=== PATIENT | female | born 1965 | race Caucasian/White ===

== ENCOUNTER 2022-06-06 08:56 | Emergency (ER) | payer BC, SELFPAY ==
[2022-06-06 08:57] VITALS: BP 134/82; PULSE 97; RESP 16; TEMP 36.2; O2SAT 100; BMI 24.3
--- NOTE | 2022-06-06 09:06 | RAD_ITS ---
INDICATION: fall EXAMINATION/TECHNIQUE: X-RAY - XR Ribs Unilateral W/ PA Chest Min 3 Views COMPARISON: January 31, 2014 FINDINGS: SOFT TISSUES: No soft tissue swelling or gas. BONES: There is a left sixth rib fracture. No sclerotic or destructive changes observed. VISUALIZED LUNGS: Clear. No pneumothorax. RAD/Ribs Uni Min 3V w/PA Chest IMPRESSION: Left sixth rib fracture. Electronically Signed: Ema Toscano MD at 10:00 EST ,
--- NOTE | 2022-06-06 09:06 | EX.ED.GENINJ ---
HPI History of Present Illness Chief Complaint: Other, Pain/Inj Detail of Chief Complaint: Rib pain after fall Informant: patient Onset/Context/Timing Onset: Days (5 days) Mechanism/Context: Fall Narrative Narrative: Patient presents for evaluation of rib pain. She tripped and fell over a barrel 5 days ago. She had pain to the anterior left lower ribs since that time. She states she does feel somewhat short of breath, but thinks it is more related to anxiety than anything else. PFSH PFSH Medical History Breast cancer Home Medications alprazolam 0.5 mg tablet 0.5 mg PO TID PRN PRN Anxiety 01/09/14 [History Last Taken 01/31/14 07:00] escitalopram oxalate 20 mg tablet 20 mg PO DAILY 01/09/14 [History Last Taken Unknown] oxycodone-acetaminophen 5 mg-325 mg tablet 1 - 2 tab PO Q4H PRN PRN Pain ##30 02/01/14 [Rx Last Taken Unknown] Allergy/AdvReac Type Severity Reaction Status Date / Time amoxicillin trihydrate Allergy Rash Verified 06/06/22 08:57 [From Augmentin] hydrocodone bitartrate Allergy Nausea Verified 06/06/22 08:57 [From Vicodin] potassium clavulanate Allergy Rash Verified 06/06/22 08:57 [From Augmentin] Surgical History H/O mastectomy Social History Smoking Status: Former smoker ROS ROS ED Constitutional Constitutional ED: Denies chills or fever(s) Eyes Eyes: Denies change in vision or discharge from eye(s) ENT ENT ED: Denies discharge from eye(s), rhinorrhea or sore throat Cardiovascular Cardiovascular: Reports chest pain; Denies palpitations Respiratory/Chest Respiratory/Chest: Reports dyspnea; Denies cough Gastrointestinal Gastrointestinal: Denies abdominal pain, diarrhea, nausea or vomiting Genitourinary Genitourinary ED: Denies dysuria Musculoskeletal Musculoskeletal: Denies back pain or extremity pain Integumentary Denies Abrasions or rash Neurologic Neurologic: Denies headache(s) or weakness Psychiatric Psychiatric: Denies anxiety or depression Allergic/Immunologic Allergic/Immunologic ED: Denies lip swelling or urticaria EXAM Physical Exam Const Vital Signs: 06/06/22 08:57 06/06/22 09:11 Temperature 97.2 F L Temperature Source Temporal Pulse Rate 97 Respiratory Rate 16 Respiratory Effort Normal Non-Labored Respiratory Pattern Normal Blood Pressure 134/82 H Blood Pressure Mean 99 Pulse Ox 100 Oxygen Delivery Method Room Air Positive well nourished and well developed General Appearance ED: well developed HEENT Reports normocephalic and head/scalp atraumatic Eyes PERRL and EOMs intact bilaterally Neck supple Chest Wall inspection of chest normal Chest Narrative: Left anterior lower rib tenderness palpation. No crepitus. Resp normal respiratory effort and clear to auscultation bilaterally Cardio regular rate and regular rhythm GI normal to inspection, nondistended, normoactive bowel sounds Palpation: soft Extremity normal to inspection Neuro oriented x3 and no sensory deficits noted Sensorium / Orientation: alert Motor Exam: strength 5/5 throughout Psych mental status grossly normal Skin no rashes or lesions noted MDM MDM MDM Narrative Medical decision making narrative: Left rib series obtained. Radiography Diagnostic Testing: Clinical Impression(s) from Imaging Studies Ribs w/Chest X-Ray 06/06/22 09:06 IMPRESSION: Left sixth rib fracture. Electronically Signed: Ema Toscano MD at 10:00 EST , Treatment and Re-Evaluation Narrative: Left rib series per my interpretation reveal no obvious fractures or pneumothorax. Radiology feels there is a left sixth rib fracture. This correlates with her area of pain. Test results are discussed with the patient. She will continue supportive care. Discharge Plan Triage Chief Complaint: Other, Pain/Inj ED Provider: Gala Balderas Dx/Rx/DC Orders Clinical Impression: Fracture of rib Instructions: ED Rib Fracture Prescriptions: No Action alprazolam 0.5 MG tablet 0.5 mg PO TID PRN PRN (Reason: Anxiety) Label Comments: anxiety escitalopram oxalate 20 MG tablet 20 mg PO DAILY Label Comments: depression oxycodone-acetaminophen 1 TABLET tablet 1 - 2 tab PO Q4H PRN PRN (Reason: Pain) Qty: 30 0RF Label Comments: pain Primary Care Provider: Rony Dhaliwal Referrals: Rony Dhaliwal MD [Primary Care Provider] - As Needed Disposition Disposition: Home, Self Care
[2022-06-06 10:42] VITALS: RESP 16
== END 2022-06-06 10:42 | disposition home or self-care (01) ==
PROVIDERS: Emergency Provider Emergency Medicine; PCP Family Medicine; Visit Provider Emergency Medicine
DX: S22.32XA Fracture of one rib, left side, initial encounter for closed fracture (principal); Z87.891 Personal history of nicotine dependence; Z85.3 Personal history of malignant neoplasm of breast; W19.XXXA Unspecified fall, initial encounter
CPT/HCPCS: 71101; 99282